=== PATIENT | male | born 1955 | race Caucasian/White ===

== ENCOUNTER 2018-05-17 06:53 | Day surgery (SDC) | payer OTHER ==
[2018-05-16 18:08] VITALS: BMI 28.2
--- NOTE | 2018-05-16 18:52 | HP ---
- Patient Scheduled date of Surgery: 05/17/18 Scheduled Surgical Procedure: Phacoemulsification and cataract extraction with PCIOL Affected Eye: Right Chief Complaint (Indication for surgery): Decreased vision affecting ADLs - Ocular History Other Eye History: Other (PVD) Eye Medications: vigamox , prolesna , cosopt 2/2, alphagan 2/2 Previous Eye Surgery: s/p ce/pciol OS +17.5 for slight myopia - Medical History Illnesses: Hypertension, Hypercholesterolemia, Other (ankylosing spondylitis ( HLA-B27+), RA, hypothyroid) Current Medications: Ambulatory Orders Infliximab [Remicade Infusion -] 100 mg IV Q6WKS vial 11/17/15 Multivitamin [Daily Vitamin Formula] 1 each PO DAILY tablet 11/17/15 famotidine fish oil folic acid levothryoxine metoprolol simvastatin Allergies/Adverse Reactions: Allergies Allergy/AdvReac Type Severity Reaction Status Date / Time No Known Allergies Allergy Unverified 05/16/18 18:07 Ocular Examination - Best Corrected Visual Acuity Distance: Right eye: 20/60 Distance: Left eye: 20/25 - External/Slit Lamp Examination Abnormalities: none - Intraocular Pressure Intraocular Pressure - Right eye: 14 Intraocular Pressure-Left eye: 14 - Lens Lens: 2+ NS vacuoles 1-2+ PSC - Vitreous/Retina Vitreous/Retina: C:D 0.45 m/v/p wnl + PVD - Special Examination M - Right eye: -3.00-1.75 x 100 M - Left eye: plano-1.00 x 090 K - Right eye: 42/22.75 x 004 K - Left eye: 41.5/42.75 x 175 AL - Right eye: 24.79 AL - Left eye: 24.83 IOL bag: +18.0 d AUOOTO IOL sulcus: +17.0 d [id number] IOL AC: +15.0 [id number] - Impression Impression: Cataract Right Eye - Plan Plan: Phacoemulsification and cataract extraction - IOL Right eye Post-hospital care will be provided in office on: 05/18/18
[~2018-05-17 06:53] MED LIST: ACETAMINOPHEN 325 MG TABLET (FP) PO PRN; CIPROFLOXACIN HCL 0.3% OPHTH 2.5ML BOTTLE OP SCH; KETOROLAC TROMETHAMINE 0.5% EYE DROP 1 DROP DROPS OP SCH; PHENYLEPHRINE 2.5% OPHTH SOLN 15 ML BOTTLE OP SCH; TOBRAMYCIN/DEXAMETHASONE OPHTH. OINTMENT 1 TUBE TP ONE; TROPICAMIDE 1% OPHTH SOLN 15 ML BOTTLE OP SCH
[2018-05-17] MEDS ORDERED: TROPICAMIDE 1% OPHTH SOLN 15 ML BOTTLE ONE (07:12)
[2018-05-17] MEDS ORDERED: CIPROFLOXACIN HCL 0.3% OPHTH 2.5ML BOTTLE ONE (07:12)
[2018-05-17] MEDS ORDERED: PHENYLEPHRINE 2.5% OPHTH SOLN 15 ML BOTTLE ONE (07:12)
[2018-05-17] MEDS ORDERED: KETOROLAC TROMETHAMINE 0.5% EYE DROP 1 DROP DROPS ONE (07:12)
[2018-05-17] MEDS ORDERED: KETOROLAC TROMETHAMINE 0.5% EYE DROP 1 DROP DROPS OD ONE ×3 (07:20→07:40)
[2018-05-17] MEDS ORDERED: CIPROFLOXACIN HCL 0.3% OPHTH 2.5ML BOTTLE OD ONE ×3 (07:20→07:40)
[2018-05-17] MEDS ORDERED: PHENYLEPHRINE 2.5% OPHTH SOLN 15 ML BOTTLE OD ONE ×3 (07:20→07:40)
[2018-05-17] MEDS ORDERED: TROPICAMIDE 1% OPHTH SOLN 15 ML BOTTLE OD ONE ×2 (07:20→07:30)
[2018-05-17] MEDS ORDERED: TOBRAMYCIN/DEXAMETHASONE OPHTH. OINTMENT 1 TUBE ONE (07:22)
[2018-05-17] MEDS ORDERED: LIDOCAINE HCL 2% JELLY (5 ML/TUBE) ONE (07:22)
[2018-05-17] MEDS ORDERED: CHONDROITIN SU A/HYALUR SOD 1 KIT ONE (07:22)
--- NOTE | 2018-05-17 07:26 | HP ---
History & Physical Update - History History: No Change - Physical Physical: No Change - Assessment Assessment: No Change - Plan Plan: No Change (Reviewed H and P from Dr Taylor from 04/25/18 no changes)
[2018-05-17] MEDS ORDERED: EPINEPHrine/PF 1 MG/1 ML (1:1,000) AMPULE ONE (07:31)
[2018-05-17] MEDS ORDERED: LIDOCAINE HCL/PF 1% SDV 5ML VIAL ONE (07:31)
[2018-05-17] MEDS ORDERED: BSS (NA/CA/MG/K) BALANCED SALT SOLUTION OPHTH SOLN 15 ML BOTTLE ONE (07:32)
[2018-05-17] MEDS ORDERED: TROPICAMIDE 0.5% OPHTHALMIC SOLN 15 ML BOTTLE OD ONE (07:40)
[2018-05-17] MEDS ORDERED: ONDANSETRON 4 MG/2 ML VIAL IVPUSH PRN (08:26)
[2018-05-17] MEDS ORDERED: MIDAZOLAM HCL 2 MG/2 ML SINGLE DOSE VIAL ONE (08:44)
[2018-05-17] MEDS ORDERED: LIDOCAINE HCL 2% JELLY (5 ML/TUBE) TP ONE (08:45)
[2018-05-17] MEDS ORDERED: POVIDONE-IODINE 5% OPHTHALMIC PREP 30 ML SOLUTION OD ONE (08:47)
[2018-05-17] MEDS ORDERED: CHONDROITIN SU A/HYALUR SOD 1 KIT IO ONE (08:56)
[2018-05-17] MEDS ORDERED: LIDOCAINE HCL 1% PRESERVATIVE FREE - 30ML VIAL IO ONE (08:56)
[2018-05-17] MEDS ORDERED: BSS (NA/CA/MG/K) BALANCED SALT SOLUTION OPHTH SOLN 15 ML BOTTLE OD ONE (08:56)
[2018-05-17] MEDS ORDERED: EPINEPHrine/PF 1 MG/1 ML (1:1,000) AMPULE SQ ONE (09:00)
[2018-05-17] MEDS ORDERED: TOBRAMYCIN/DEXAMETHASONE OPHTH. OINTMENT 1 TUBE TP ONE (09:18)
--- NOTE | 2018-05-17 09:23 | OP ---
Ophthalmology Operative Note Pre-Operative Diagnosis: Cataract Affected Eye: Right Operation: Phacoemulsification and cataract extraction with PCIOL Findings: NS cataract right eye Post-Operative Diagnosis: Same as Pre-op Transmission Systems Operator: None Anesthesiologist: Kain Case Anesthesia: Topical Specimens Removed: none Estimated blood loss: < 1cc Drains & Tubes with Location: none Operative Report Dictated: Yes
[2018-05-17 09:33] VITALS: TEMP 97.6
--- NOTE | 2018-05-17 10:24 | OP ---
DATE OF OPERATION: 05/17/2018 PREOPERATIVE DIAGNOSIS: Right eye. POSTOPERATIVE DIAGNOSIS: Right eye. PROCEDURE: Phacoemulsification and cataract extraction with insertion of posterior chamber intraocular lens, right eye. SURGEON: Isabel Turpin MD TRANSIT SPECIALIST: None. ANESTHESIA: Topical. ANESTHESIOLOGIST: MAXIMILIANO Hensley OPERATIVE PROCEDURE: Patient received 2% viscous lidocaine gel and then was gently sedated and prepped and draped in the usual sterile fashion so as to expose only the right eye. Ophthalmic Betadine was instilled into the inferior fornix. The lashes were taped out of the surgical field. An eyelid speculum was placed into the right eye. A paracentesis was made in superotemporal clear cornea at the limbus. Next, 0.5 mL of nonpreserved lidocaine 1% was injected into the anterior chamber. Viscoelastic material was instilled into the anterior chamber via the paracentesis. A 2.4-mm keratome was then used to create the main incision in temporal clear cornea at the limbus. A continuous curvilinear capsulorrhexis was performed using a cystotome and Utrata forceps. Hydrodissection of the lens cortex was performed using BSS on a cannula until the nucleus was noted to be freely rotating. The phacoemulsification tip was inserted via the main wound and used to sculpt 2 perpendicular grooves into the lens nucleus. The nucleus was cracked into 4 quadrants. Each quadrant was lifted out of the capsule into the iris plane and individually phacoemulsified. The remaining cortical material was then aspirated using the irrigation and aspiration port. The capsular bag was inflated using Provisc, and a preloaded AcrySof lens model [id number], power +18.0 diopters was injected into the capsular bag and centered using a Sinskey hook. The residual viscoelastic material was removed from the anterior chamber using irrigation and aspiration. The wound edges were hydrated using BSS. The wound was tested for leakage; it was found to be watertight. TobraDex ointment was placed into the eye and the speculum was removed from the eye and the eyelid was closed. A sterile dressing and shield were placed over the eye, and the patient was transferred to the recovery room in stable condition, told to follow up in 1 day. ISABEL TURPIN M.D. [id number]
[2018-05-17 10:29] VITALS: BP 124/77; PULSE 64
== END 2018-05-17 10:15 | disposition home or self-care (01) ==
LOC: JASU-SURG 06:53
PROVIDERS: ATTEND Ophthalmology
PROC: 08RJ3JZ Replacement of Right Lens with Synthetic Substitute, Percutaneous Approach (ICD-10-PCS; principal; 2018-05-17 08:30)
DX: H26.9 Unspecified cataract (principal)